=== PATIENT | female | born 1980 | race Caucasian/White ===

== ENCOUNTER 2022-11-18 06:22 | Inpatient (IN) | payer BC ==
[2022-11-16 11:15] LABS: HEMOGLOBIN A1C 5.8 % (4.5-6.2)
[2022-11-16 11:38] LABS: ESTIMATED GFR 111 mL/min (>60)
[~2022-11-18 06:22] MED LIST: Celecoxib 200 MG Cap PO ONE; Scopolamine 1.5 MG Transdermal Patch TOP SCH
[2022-11-18] MEDS ORDERED: Acetaminophen 500 MG Tab PO ONE (06:30)
[2022-11-18] MEDS ORDERED: cefOXitin 2 GM Vial ONE (06:35)
[2022-11-18] MEDS ORDERED: fentaNYL 250 MCG/5 ML SDV ONE ×2 (07:09→08:27)
[2022-11-18] MEDS ORDERED: Ondansetron 4 MG/2 ML SDV ONE (07:10)
[2022-11-18] MEDS ORDERED: Rocuronium 50 MG/5 ML Vial ONE ×2 (07:10→09:38)
[2022-11-18] MEDS ORDERED: Dexamethasone 4 MG/ML SDV ONE (07:10)
[2022-11-18] MEDS ORDERED: Propofol 200 MG/20 ML SDV ONE (07:10)
[2022-11-18] MEDS ORDERED: Succinylcholine 200 MG/10 ML MDV ONE (07:10)
[2022-11-18] MEDS ORDERED: Neostigmine Methylsulfate 1 MG/ML 5 ML Syringe ONE (07:10)
[2022-11-18] MEDS ORDERED: Glycopyrrolate 0.2 MG/ML 5 ML MDV ONE (07:10)
[2022-11-18] MEDS ORDERED: Dextrose 5%-Lactated Ringers 1,000 ML IV SCH (07:30)
[2022-11-18] MEDS ORDERED: cefOXitin 2 GM in Sodium Chloride 0.9% 50 ML IV ONE (08:30)
[2022-11-18] MEDS ORDERED: Ketamine 500 MG/5 ML MDV IV SCH (08:30)
[2022-11-18] MEDS ORDERED: Ketamine 15 MG in Sodium Chloride 0.9% 19.85 ML IV SCH (08:30)
[2022-11-18] MEDS ORDERED: Insulin Aspart 100 Units/ML 3 ML Pen SUBCUT ONE (11:44)
[2022-11-18] MEDS ORDERED: Glucagon,Human Recombinant 1 MG Vial IM PRN ×2 (11:44→13:00)
[2022-11-18] MEDS ORDERED: 50% Dextrose in Water 50 ML Syringe IVPUSH PRN ×2 (11:44→13:00)
[2022-11-18] MEDS ORDERED: Insulin Lispro 100 Unit/ML 3 ML KwikPen SUBCUT ONE (12:00)
[2022-11-18] MEDS ORDERED: Cyclobenzaprine 10 MG Tab PO PRN (12:07)
[2022-11-18] MEDS ORDERED: Ondansetron 4 MG/2 ML SDV IVPUSH PRN (13:00)
[2022-11-18] MEDS ORDERED: HYDROmorphone 0.5 MG/0.5 ML Syringe IVPUSH PRN (13:00)
[2022-11-18] MEDS ORDERED: HYDROmorphone 1 MG/ML Syringe IV PRN (13:00)
[2022-11-18] MEDS ORDERED: diphenhydrAMINE 50 MG/ML SDV IVPUSH PRN (13:00)
[2022-11-18] MEDS ORDERED: Acetaminophen 500 MG Tab PO PRN (13:00)
[2022-11-18] MEDS ORDERED: Labetalol 20 MG/4 ML Syringe IVPUSH PRN (13:00)
[2022-11-18] MEDS ORDERED: traMADol 50 MG Tab PO PRN (13:00)
[2022-11-18] MEDS ORDERED: Metoclopramide 10 MG/2 ML SDV IVPUSH PRN (13:00)
[2022-11-18] MEDS: hydrOXYzine HCL 100 MG/2 ML SDV IM PRN ×2 (13:29→21:53)
[2022-11-18] MEDS ORDERED: Pantoprazole 40 MG Vial IVPUSH SCH (14:00)
[2022-11-18] MEDS: Sodium Ferric Gluconate Cmplex 250 MG in Sodium Chloride 0.9% 100 ML IV SCH (14:15)
[2022-11-18] MEDS: Lactated Ringers 1,000 ML IV SCH ×2 (14:19→22:59)
[2022-11-18] MEDS: cefOXitin 2 GM in Sodium Chloride 0.9% 50 ML IV SCH ×2 (14:20→20:29)
[2022-11-18] MEDS: Magnesium Sulfate/Water 2 GM in Premix Bag 1 BAG IV SCH ×2 (14:28→21:46)
[2022-11-18] MEDS: Acetaminophen 500 MG Tab PO SCH ×2 (14:28→21:55)
[2022-11-18] MEDS ORDERED: MVI, Adult with Vitamin K 10 ML, Thiamine 200 MG, Zinc/Copper/Manganese/Selenium 1 ML i... IV SCH ×4 (16:00)
[2022-11-18] MEDS: Insulin Lispro 100 Unit/ML 3 ML KwikPen SUBCUT SCH ×2 (16:31→21:55)
[2022-11-18] MEDS: Heparin Sodium 5,000 Units/ML Vial SUBCUT SCH (18:00)
[2022-11-18] MEDS: oxyCODONE 5 MG Tab PO PRN (18:00)
[2022-11-18] MEDS: atorvaSTATin 20 MG Tab PO SCH (21:54)
[2022-11-19] MEDS ORDERED: Iopamidol 612 MG/ML 30 ML SDV PO STA (01:49)
[2022-11-19] MEDS: cefOXitin 2 GM in Sodium Chloride 0.9% 50 ML IV SCH ×4 (02:23→20:49)
[2022-11-19] MEDS: oxyCODONE 5 MG Tab PO PRN ×3 (02:29→20:50)
[2022-11-19] MEDS: Magnesium Sulfate/Water 2 GM in Premix Bag 1 BAG IV SCH ×4 (03:05→21:44)
[2022-11-19] MEDS: Insulin Lispro 100 Unit/ML 3 ML KwikPen SUBCUT SCH ×4 (04:40→21:49)
[2022-11-19] MEDS: Lactated Ringers 1,000 ML IV SCH ×2 (04:45→14:45)
[2022-11-19] MEDS: Acetaminophen 500 MG Tab PO SCH ×3 (05:17→21:50)
[2022-11-19] MEDS: Heparin Sodium 5,000 Units/ML Vial SUBCUT SCH ×2 (05:17→18:30)
[2022-11-19] MEDS ORDERED: Ondansetron 4 MG Tab.DIS PO PRN (07:03)
[2022-11-19] MEDS: hydrOXYzine HCl 25 MG Tab PO PRN ×3 (07:41→18:28)
[2022-11-19] MEDS: Escitalopram 20 MG Tab PO SCH (09:24)
[2022-11-19] MEDS: Celecoxib 200 MG Cap PO SCH ×2 (09:24→21:50)
[2022-11-19] MEDS: SCOPOLAMINE PATCH CHECK TOP SCH (09:30)
[2022-11-19] MEDS ORDERED: MVI, Adult with Vitamin K 10 ML, Thiamine 200 MG, Zinc/Copper/Manganese/Selenium 1 ML i... IV SCH ×4 (16:00)
[2022-11-19] MEDS ORDERED: Pantoprazole 40 MG Delayed-Release Granules 1 Packet PO SCH (16:30)
[2022-11-19] MEDS: Sodium Ferric Gluconate Cmplex 250 MG in Sodium Chloride 0.9% 100 ML IV SCH (16:42)
[2022-11-19] MEDS: atorvaSTATin 20 MG Tab PO SCH (21:50)
[2022-11-20] MEDS: Magnesium Sulfate/Water 2 GM in Premix Bag 1 BAG IV SCH ×2 (02:53→07:34)
[2022-11-20] MEDS: hydrOXYzine HCl 25 MG Tab PO PRN ×3 (02:58→13:37)
[2022-11-20] MEDS: Insulin Lispro 100 Unit/ML 3 ML KwikPen SUBCUT SCH ×2 (04:29→09:57)
[2022-11-20] MEDS: Heparin Sodium 5,000 Units/ML Vial SUBCUT SCH (05:48)
[2022-11-20] MEDS: Acetaminophen 500 MG Tab PO SCH (05:48)
[2022-11-20] MEDS: Lactated Ringers 1,000 ML IV SCH (07:23)
[2022-11-20] MEDS: Celecoxib 200 MG Cap PO SCH (08:20)
[2022-11-20] MEDS: Escitalopram 20 MG Tab PO SCH (08:20)
[2022-11-20] MEDS ORDERED: Cyanocobalamin (Vitamin B12) 1,000 MCG/ML SDV IM ONE (09:00)
[2022-11-20] MEDS ORDERED: Magnesium Hydroxide 400 MG/5 ML Susp 30 ML Cup PO ONE ×2 (09:20→10:18)
[2022-11-20] MEDS: SCOPOLAMINE PATCH CHECK TOP SCH (11:13)
== END 2022-11-20 13:50 | disposition still patient (30) | DRG 403 ==
LOC: JP.SDSSCHI 06:22 → JP.MS 12:25
PROVIDERS: ADMIT Surgery; ATTEND Surgery
PROC: 0D164ZA Bypass Stomach to Jejunum, Percutaneous Endoscopic Approach (ICD-10-PCS; principal; 2022-11-18)
PROC: 0FB24ZX Excision of Left Lobe Liver, Percutaneous Endoscopic Approach, Diagnostic (ICD-10-PCS; 2022-11-18)
PROC: 0BQT4ZZ Repair Diaphragm, Percutaneous Endoscopic Approach (ICD-10-PCS; 2022-11-18)
DX: E66.01 Morbid (severe) obesity due to excess calories (principal); R16.0 Hepatomegaly, not elsewhere classified; K44.9 Diaphragmatic hernia without obstruction or gangrene; Q43.3 Congenital malformations of intestinal fixation; E78.5 Hyperlipidemia, unspecified; G47.33 Obstructive sleep apnea (adult) (pediatric); K21.9 Gastro-esophageal reflux disease without esophagitis; Z68.43 Body mass index [BMI] 50.0-59.9, adult; F41.1 Generalized anxiety disorder; E03.9 Hypothyroidism, unspecified; M54.50 Low back pain, unspecified; G89.29 Other chronic pain
CPT/HCPCS: 36415; 74240; 74240-26; 80053; 82728; 82947; 83036; 83735; 83880; 84100; 84703; 85027; 86850; 86870; 86900; 86901; 86902; 86920; 86922; 93005; A9270-GY; C9113; J0171; J0330; J0694; J1100; J1644; J1815; J2405; J2704; J2710; J2795; J2916; J3010; J3410; J3411; J3420; J3475; J3490; J7120; J7121; Q9967

== ENCOUNTER 2022-12-31 07:36 | Day surgery (SDC) | payer BC ==
[~2022-12-31 07:36] MED LIST changes: -Celecoxib 200 MG Cap PO ONE; +Midazolam 1 MG/ML 2 ML SDV ONE; +Propofol 200 MG/20 ML SDV ONE; -Scopolamine 1.5 MG Transdermal Patch TOP SCH; +fentaNYL 100 MCG/2 ML SDV ONE
[2022-12-31] MEDS ORDERED: Glycopyrrolate 0.2 MG/ML 2 ML SDV IVPUSH ONE (08:00)
[2022-12-31] MEDS ORDERED: Lactated Ringers 1,000 ML IV ONE (08:00)
[2022-12-31] MEDS ORDERED: Cyanocobalamin (Vitamin B12) 1,000 MCG/ML SDV IM ONE (08:00)
[2022-12-31] MEDS ORDERED: MVI, Adult with Vitamin K 10 ML, Thiamine 200 MG, Chromium/Copper/Mang/Selen/Zn 1 ML in... IV ONE ×4 (09:00)
[2022-12-31] MEDS ORDERED: Dexamethasone 4 MG/ML SDV ONE (09:05)
== END 2022-12-31 12:40 | disposition home or self-care (01) ==
LOC: JP.SDS 07:36
PROVIDERS: ATTEND Surgery
DX: K94.23 Gastrostomy malfunction (principal); R13.10 Dysphagia, unspecified; G47.33 Obstructive sleep apnea (adult) (pediatric); K21.9 Gastro-esophageal reflux disease without esophagitis; E66.9 Obesity, unspecified; E78.5 Hyperlipidemia, unspecified; K90.9 Intestinal malabsorption, unspecified; Z68.42 Body mass index [BMI] 45.0-49.9, adult; Z79.899 Other long term (current) drug therapy; Z91.048 Other nonmedicinal substance allergy status
CPT/HCPCS: 43245; 81025; C1726; J1100; J2250; J2704; J3010; J3411; J3420; J3490; J7120

== ENCOUNTER 2023-02-04 07:24 | Day surgery (SDC) | payer BC ==
[~2023-02-04 07:24] MED LIST changes: +Lactated Ringers 1,000 ML IV ONE; -Midazolam 1 MG/ML 2 ML SDV ONE; -Propofol 200 MG/20 ML SDV ONE; -fentaNYL 100 MCG/2 ML SDV ONE
[2023-02-04] MEDS ORDERED: Midazolam 1 MG/ML 2 ML SDV ONE (07:34)
[2023-02-04] MEDS ORDERED: fentaNYL 50 MCG/ML SDV ONE (07:34)
[2023-02-04] MEDS ORDERED: Propofol 200 MG/20 ML SDV ONE ×2 (07:34→09:15)
[2023-02-04] MEDS ORDERED: Lactated Ringers 1,000 ML IV ONE (07:45)
[2023-02-04] MEDS ORDERED: Cyanocobalamin (Vitamin B12) 1,000 MCG/ML SDV IM ONE (08:00)
[2023-02-04] MEDS ORDERED: Glycopyrrolate 0.2 MG/ML 2 ML SDV IVPUSH ONE (08:30)
[2023-02-04] MEDS ORDERED: MVI, Adult with Vitamin K 10 ML, Thiamine 200 MG, Zinc/Copper/Manganese/Selenium 1 ML i... IV ONE ×4 (09:50)
== END 2023-02-04 11:30 | disposition home or self-care (01) ==
LOC: JP.SDS 07:24
PROVIDERS: ATTEND Surgery
DX: K91.89 Other postprocedural complications and disorders of digestive system (principal); K31.89 Other diseases of stomach and duodenum; Z98.84 Bariatric surgery status; K90.9 Intestinal malabsorption, unspecified; Z98.0 Intestinal bypass and anastomosis status
CPT/HCPCS: 43245; 76000; 81025; C1726; J2250; J2704; J3010; J3411; J3420; J3490; J7120